=== PATIENT | male | born 1955 | race Caucasian/White ===

== ENCOUNTER 2017-11-29 18:07 | Emergency (ER) | payer MEDICAID ==
[~2017-11-29] VITALS: Ht 177.8 cm; Wt 72.6 kg
[2017-11-29 18:22] VITALS: BP_SYST 137
--- NOTE | 2017-11-29 18:31 | NUR ---
Patient to ER bed 7 to gown for evaluation. Side rails up. Report given to Nicola CORTÉS.
--- NOTE | 2017-11-29 18:35 | NUR ---
Patient to ER via triage with c/o laceration to right 4th finger from [facility]. Last Tetanus shot was more than 5 years ago. No active bleeding noted at this time. Patient awaiting evaluation by ER MD/PHYSICAL THERAPY TEACHER, will continue to observe and assess.
--- NOTE | 2017-11-29 18:40 | NUR ---
Eugenie ROLL MILL OPERATOR at bedside to evaluate patient.
[2017-11-29] MEDS ORDERED: LIDOCAINE 2%, 20 ML MDV IJ ONE (18:45)
[2017-11-29] MEDS ORDERED: BACITRACIN 1 GM OINT TP ONE (18:45)
[2017-11-29] MEDS ORDERED: DIPH-TET-PERTUS Vaccine 0.5 ML VIAL (ADACEL) IM ONE (18:45)
[2017-11-29] MEDS ORDERED: ACETAMINOPHEN 500 MG TABLET PO ONE (18:45)
--- NOTE | 2017-11-29 18:55 | NUR ---
Tylenol not recognized by bar scanner-manually entered.
--- NOTE | 2017-11-29 20:00 | NUR ---
Patient resting quietly in no acute distress. Awaiting laceration repair by Eugenie CASTRO.
--- NOTE | 2017-11-29 20:20 | NUR ---
Eugenie LABELING SPECIALIST at bedside for laceration repair.
[2017-11-29 20:52] VITALS: BP_SYST 130
--- NOTE | 2017-11-29 20:52 | NUR ---
Patient given written and verbal discharge instructions and verbalizes understanding. ER MD discussed with patient the results and treatment provided. Patient in stable condition. ID arm band removed. Rx of Bacitracin, Motrin given. Patient educated on pain management and to follow up with PMD. Pain Scale 1. Opportunity for questions provided and answered. Patient left ER ambulating with slow, steady gait in no acute distress with no reaction noted to medication with friends at side. Patient was discharged and given paperwork by Bhavya CORTÉS.
== END 2017-11-29 20:52 | disposition home or self-care (01) ==
LOC: SED 18:07
DX: S61.214A Laceration without foreign body of right ring finger without damage to nail, initial encounter (principal); I10 Essential (primary) hypertension; E78.5 Hyperlipidemia, unspecified; Z98.890 Other specified postprocedural states; W45.8XXA Other foreign body or object entering through skin, initial encounter; Y93.89 Activity, other specified; Y92.89 Other specified places as the place of occurrence of the external cause; Y99.8 Other external cause status
CPT/HCPCS: 12001; 90471; 90715; 99284; J2001; J7030